=== PATIENT | female | born 1965 | race African-American/Black ===

== ENCOUNTER → 2017-02-01 | Outpatient (CLI) | payer BC ==
[~2017-02-01] MED LIST: ALKA-SELTZ PLUS1 CAP PO; ATROVENT HFA12.9 GM INH; DUONEB 2.5-0.5 M3 ML NEB; HCTZ PO; LEVAQUIN PO; LISINOPRIL PO; METFORMIN PO; NICOTINE T1 PATCH .2 TOP; PROVERA PO; PULMICORT200 MCG/AE; TYLENOL #2 PO
--- NOTE | ~2017-02-01 | US77 ---
[facility] A Service of [facility] & [facility] RADIOLOGY TEXT RESULTS PATIENT: YADY VIRAMONTES LOCATION: [facility] : 61 UNIT #: [id number] AGE: [address]: Koki Bello MD SEX: F ORDER DR: [id number] [facility] [address] [place], [place] [address] [id number] O MR#: [id number] Acc #: [id number] NAME: YADY VIRAMONTES : 1965 SEX: F STUDY DATE/TIME: 02/01/2017 12:35 UNIT: [facility] ROOM: STUDY DESCRIPTION: US Kidney Bilateral Complete Attending Physician: Koki Bello M.D. Referring Physician: Koki Bello M.D. Ordering Physician: Koki Bello M.D. Primary Care Physician: Koki Bello M.D. MEDICAL IMAGING REPORT This report is preliminary unless electronic signature is present EXAM Renal ultrasound complete 02/01/2017 HISTORY Acute renal insufficiency, abnormal renal function tests, 01/14/2017. Elevated creatinine of 1.35. Abnormally low GFR of 50. FINDINGS The right kidney measures 10.5 cm while the left kidney measures 9.2 cm in longitudinal dimensions. There is no evidence of hydronephrosis or nephrolithiasis. No cystic or solid mass lesions were seen on either kidney. There is normal renal cortical echogenicity. Images of the bladder are normal. IMPRESSION 1. Negative renal ultrasound. 2. Images of the bladder are normal. Dictated by... Bry Lima M.D. THIS IS AN ELECTRONICALLY VERIFIED REPORT Bry Lima M.D. at 02/04/2017 12:18 PM [email or web address] TD: 02/01/2017 22:55 JOB #: [id number] MEDICAL IMAGING REPORT Page 1 of 1 COPY
== END | disposition home or self-care (01) ==
LOC: CGUS 12:00
DX: R94.4 Abnormal results of kidney function studies (principal)
CPT/HCPCS: 76770